=== PATIENT | male | born 1970 | race Caucasian/White ===

== ENCOUNTER 2016-11-11 17:32 | Emergency (ER) | payer BC ==
[2016-11-11 18:03] VITALS: BP 151/91
[2016-11-11] MEDS ORDERED: Cephalexin CAP* 250 MG PO ONE (19:25)
[2016-11-11] MEDS ORDERED: Ibuprofen TAB* 600 MG PO ONE (19:26)
[2016-11-11] MEDS ORDERED: Tetan/Diph/Pertus SYR(Tdap)* 0.5 ML SYR(BOOSTRIX) use SYR IM ONE (19:34)
--- NOTE | 2016-11-11 19:36 | ED ---
Skin Complaint - HPI Summary HPI Summary: 46 male presents with a fish hook in left thumb that occurred just prior to arrival while going out to [employer]. Patient states it is painful to touch. Denies numbness/tingling. No other injuries. Hook was used in the past however not today. No PMHx and no medications. - History of Current Complaint Chief Complaint: EDExtremityUpper Time Seen by Provider: 11/11/16 18:04 Stated Complaint: HOOK IN LT THUMB Hx Obtained From: Patient Onset/Duration: Started Hours Ago, Traumatic, Still Present Skin Exposure Onset/Duration: Hours Ago Timing: Constant Onset Severity: Moderate Current Severity: Mild Pain Intensity: 4 Pain Scale Used: 0-10 Numeric Skin Location: Hand - left thumb Character: Pain Aggravating Symptom(s): Nothing Alleviating Symptom(s): Nothing Related History: Trauma PMH/Surg Hx/FS Hx/Imm Hx Endocrine/Hematology History: Denies: Hx Diabetes Cardiovascular History: Denies: Hx Hypertension Respiratory History: Denies: Hx Asthma - Surgical History Surgery Procedure, Year, and Place: none - Immunization History Date of Tetanus Vaccine: needs to be updated today 11/11/16 Immunizations Up to Date: Yes Infectious Disease History: Denies: Traveled Outside the [place] in Last 30 Days - Family History Known Family History: Positive: None - Social History Alcohol Use: Occasionally Substance Use Type: Reports: None Smoking Status (MU): Never Smoked Tobacco Review of Systems Constitutional: Negative Cardiovascular: Negative Respiratory: Negative Positive: Other - fish hook in left thumb Neurological: Negative All Other Systems Reviewed And Are Negative: Yes Physical Exam Triage Information Reviewed: Yes Vital Signs On Initial Exam: Initial Vitals Temp Pulse Resp BP Pulse Ox 97.9 F 84 18 151/91 96 11/11/16 18:00 11/11/16 18:00 11/11/16 18:00 11/11/16 18:00 11/11/16 18:00 Vital Signs Reviewed: Yes Appearance: Positive: Well-Appearing, No Pain Distress, Well-Nourished Skin: Positive: Warm, Skin Color Reflects Adequate Perfusion, Dry, Other - fish hook impaled in left thumb anterior finger pad, deep tissue. painful to touch. once removed wound was irrigated and very minimal, dressed. Head/Face: Positive: Normal Head/Face Inspection Eyes: Positive: Conjunctiva Clear ENT: Positive: Hearing grossly normal Neck: Positive: Supple, Nontender Respiratory/Lung Sounds: Positive: Clear to Auscultation, Breath Sounds Present. Negative: Rales, Rhonchi, Wheezes Cardiovascular: Positive: Normal, RRR, Pulses are Symmetrical in both Upper and Lower Extremities - 2+. Negative: Murmur, Rub Musculoskeletal: Positive: Normal, Strength/ROM Intact Neurological: Positive: Normal, Sensory/Motor Intact - sensation intact, Alert, Oriented to Person Place, Time, CN Intact II-III, Reflexes Intact, NV Bundle Intact Distally Psychiatric: Positive: Affect/Mood Appropriate AVPU Assessment: Alert Procedures - Procedure Summary Procedure Summary: fish hook was removed from left thumb after preforming a digital block and local anesthetic with 2% lidocaine. hook jered was pushed through cut off and rest of hook removed without complication, minimal to no bleeding. patient tolerated procedure well. wounds were irrigated and dressed. Diagnostics - Vital Signs Vital Signs Temp Pulse Resp BP Pulse Ox 11/11/16 18:00 97.9 F 84 18 151/91 96 - Laboratory Lab Statement: Any lab studies that have been ordered have been reviewed, and results considered in the medical decision making process. Course/Dx - Course Course Of Treatment: due to LIZZY and PE findings did not require x-ray at this time. no concern for bony injury. hook was removed without complication, irrigated and dressed. tetanus was updated. given first dose of antibiotics and ibuprofen while in office. continue at home. follow up with PCP. watch for signs of infection. RICE. Aware of worsening signs and symptoms to watch out for. - Differential Diagnoses - Skin Complaint Differential Diagnoses: Other - laceration, puncture wound, foreign body - Diagnoses Provider Diagnoses: Fish hook injury of left thumb Discharge - Discharge Plan Condition: Stable Disposition: HOME Prescriptions: Cephalexin CAP* [Keflex CAP*] 250 mg PO TID #21 cap Ibuprofen TAB* [Motrin TAB* 600 MG] 600 mg PO Q6H PRN #20 tab PRN Reason: Pain Patient Education Materials: Soft Tissue Foreign Body (ED), Puncture Wound (ED) Referrals: Non Staff,Doctor [Primary Care Provider] - Additional Instructions: Keep wound clean and dry. Apply triple antibiotic ointment as needed. Take prescribed antibiotic as directed until entire dose is finished. Take ibuprofen for pain and inflammation. Ice and elevate. Numbing will wear off in the next couple of hours. If bleeding occurs or signs of infection, or new symptoms develop please seek medical attention promptly.
== END 2016-11-11 20:53 | disposition home or self-care (01) ==
LOC: ED 17:32
DX: S60.352A Superficial foreign body of left thumb, initial encounter (principal); W45.8XXA Other foreign body or object entering through skin, initial encounter; Y93.89 Activity, other specified; Y92.9 Unspecified place or not applicable; Z23 Encounter for immunization
CPT/HCPCS: 90715; 99281; A9270-GY